=== PATIENT | female | born 1965 | race Caucasian/White ===

== ENCOUNTER → 2016-09-19 | Outpatient (CLI) | payer BC ==
[2016-09-19 11:30] LABS: INFLUENZA A PCR Neg for Influ A (NEG); INFLUENZA B PCR Neg for Influ B (NEG)
== END | disposition home or self-care (01) ==
LOC: C.LAB1850 08:45
PROVIDERS: ATTEND Internal Medicine Infectious Disease
DX: J06.9 Acute upper respiratory infection, unspecified (principal)

== ENCOUNTER → 2016-10-15 | Outpatient (CLI) | payer BC ==
--- NOTE | 2016-10-15 12:41 | MAMMOGRAPHY REPORT ---
BILATERAL DIGITAL SCREENING MAMMOGRAM TOMOSYNTHESIS WITH CAD: 10/15/2016 CLINICAL HISTORY: Routine screening. Patient has no complaints. TECHNIQUE: Breast tomosynthesis in addition to standard 2D mammography was performed. Current study was also evaluated with a Computer Aided Detection (CAD) system. COMPARISON: Comparison is made to exams dated: 10/12/2015 mammogram, 06/02/2013 stereotactic biopsy, 05/12/2013 mammogram, 12/18/2011 mammogram - [facility], 04/01/2007, and 08/16/2003 m ammogram - [facility]. BREAST COMPOSITION: The tissue of both breasts is extremely dense, which lowers the sensitivity of mammography. FINDINGS: No suspicious masses, calcifications, or areas of architectural distortion are noted in e ither breast. There has been no significant interval change compared to prior exams. Small cluster of calcifications in the left upper outer quadrant anteriorly is stable compared to prior exams. Ot her scattered bilateral benign-appearing calcifications are stable. IMPRESSION: ACR BI-RADS CATEGORY 2: BENIGN There is no mammographic evidence of malignancy. A 1 year screening mammogram is recommended. The p atient will receive written notification of the results. Approximately 10% of breast cancers are not detected with mammography. A negative mammographic repor t should not delay biopsy if a clinically suggestive mass is present. Radha Frank M.D. /:10/15/2016 07:58:52 Digital Asset Manager: Tsering Mueller, [facility] letter sent: Normal 1/2 BI-RADS Code: ACR BI-RADS Category 2: Benign
== END | disposition home or self-care (01) ==
LOC: C.MAMM 07:33
PROVIDERS: ATTEND Obstetrics & Gynecology
DX: Z12.31 Encounter for screening mammogram for malignant neoplasm of breast (principal)

== ENCOUNTER → 2017-10-17 | Outpatient (CLI) | payer BC ==
--- NOTE | 2017-10-18 14:59 | MAMMOGRAPHY REPORT ---
BILATERAL DIGITAL SCREENING MAMMOGRAM TOMOSYNTHESIS WITH CAD: 10/17/2017 CLINICAL HISTORY: Routine screening. Patient has no complaints. TECHNIQUE: Breast tomosynthesis in addition to standard 2D mammography was performed. Current study was also evaluated with a Computer Aided Detection (CAD) system. COMPARISON: Comparison is made to exams dated: 10/15/2016 mammogram, 10/12/2015 mammogram, 06/02/2013 s tereotactic biopsy, 05/26/2013 mammogram, 05/12/2013 mammogram, and 12/18/2011 mammogram - [facility]. BREAST COMPOSITION: The tissue of both breasts is extremely dense, which lowers the sensitivity of m ammography. FINDINGS: There is an asymmetry seen within the right lateral breast middle depth on the cc view, wh ich may represent normal fibroglandular tissue although spot compression tomosynthesis views and poss ible breast ultrasound are recommended for further evaluation. At the time of the diagnostic workup, recommend repeat right MLO view to include more posterior tissue. The remainder of both breasts are stable compared to prior exams, without suspicious masses, calcific ations, or areas of architectural distortion noted. Scattered bilateral benign-appearing calcificati ons are again noted. IMPRESSION: ACR BI-RADS CATEGORY 0: INCOMPLETE EVALUATION: NEED ADDITIONAL IMAGING EVALUATION Right breast asymmetry, for which additional imaging evaluation is recommended. At the time of the d iagnostic workup, a repeat right MLO view is recommended as described above. The patient will be juno led to schedule an appointment. Approximately 10% of breast cancers are not detected with mammography. A negative mammographic report should not delay biopsy if a clinically suggestive mass is present. Radha Frank M.D. ah/:10/17/2017 16:33:28 Microcomputer Technician: Yuli CAUSEY,R, M, [facility] letter sent: Addl Imaging 0 BI-RADS Code: ACR BI-RADS Category 0: Incomplete Evaluation: Need Additional Imaging Evaluation
== END | disposition home or self-care (01) ==
LOC: C.MAMM 07:31
PROVIDERS: ATTEND Obstetrics & Gynecology
DX: Z12.31 Encounter for screening mammogram for malignant neoplasm of breast (principal); N64.89 Other specified disorders of breast

== ENCOUNTER → 2017-10-30 | Outpatient (CLI) | payer BC ==
--- NOTE | 2017-10-30 15:57 | MAMMOGRAPHY REPORT ---
UNILATERAL RIGHT DIGITAL DIAGNOSTIC MAMMOGRAM TOMOSYNTHESIS AND TARGETED RIGHT ULTRASOUND: 10/30/2017 CLINICAL HISTORY: Callback from screening mammogram for right breast asymmetry. TECHNIQUE: Breast tomosynthesis in addition to standard 2D mammography was performed. Spot compress ion right CC and MLO and repeat right MLO 2-D and tomosynthesis images were obtained. COMPARISON: Comparison is made to exams dated: 10/17/2017 mammogram, 10/15/2016 mammogram, 10/12/2015 m ammogram, 06/02/2013 stereotactic biopsy, 05/26/2013 mammogram, and 05/12/2013 mammogram - [facility]. BREAST COMPOSITION: The tissue of the right breast is extremely dense, which lowers the sensitivity of mammography. FINDINGS: The previously described asymmetry seen within the right lateral breast on the cc view flores s not clearly persist on the additional spot compression views and may represent normal overlapping f ibroglandular tissue. Targeted ultrasound was performed of the right lateral breast in the region of the mammographic asymmetry. In the right breast at 8:00 periareolar region, there is a gently lobul ated circumscribed hypoechoic solid mass which measures 1.6 x 0.5 x 1.8 cm. An echogenic focus is se en within the mass which corresponds with a coarse calcification seen mammographically. This may rep resent a fibroadenoma, however, ultrasound-guided core needle biopsy is recommended for further evalu ation given that the mass is newly visualized and appears solid on ultrasound. IMPRESSION: ACR BI-RADS CATEGORY 4: SUSPICIOUS, TARGETED ULTRASOUND ACR BI-RADS CATEGORY 4: SUSPICIO US Circumscribed hypoechoic 1.8 cm mass in the right 8:00 breast on ultrasound. This may correspond wit h the mammographic asymmetry, or alternatively the mammographic asymmetry may represent normal overla pping fibroglandular tissue and the mass is incidentally identified on ultrasound. The mass likely r epresents a fibroadenoma although is indeterminate and ultrasound-guided core needle biopsy is recomm ended for further evaluation. A phone call was made to the physician's office to confirm faxed results were received. The patient has been verbally notified of the results. She tentatively scheduled the biopsy before leaving the [facility]. Approximately 10% of breast cancers are not detected with mammography. A negative mammographic report should not delay biopsy if a clinically suggestive mass is present. Radha Frank M.D. ah/:10/30/2017 09:41:04 Cuff Setter: Tsering CAUSEY(R)(M), [facility] letter sent: Abnormal 4/5 BI-RADS Code: ACR BI-RADS Category 4: Suspicious Ultrasound BI-RADS: ACR BI-RADS Category 4: Suspici ous
== END | disposition home or self-care (01) ==
LOC: C.MAMM 08:28
PROVIDERS: ATTEND Obstetrics & Gynecology
DX: N64.9 Disorder of breast, unspecified (principal); N63.10 Unspecified lump in the right breast, unspecified quadrant

== ENCOUNTER → 2017-11-06 | Outpatient (CLI) | payer BC ==
--- NOTE | 2017-11-06 08:24 | Discharge Instructions ---
Discharge Instructions Procedure Procedure Date: Nov 06, 2017. Reason for visit: Right Mass. Discharge Discharge Date: Nov 06, 2017. Discharge Diagnosis: status post breast biopsy Instructions Activity Recommendations: Additional Limitations (see below) Return to School/Work: no limitations Recommended Home Diet: No Limitations Provider Instructions: ACTIVITY RECOMMENDATIONS: * No lifting, pushing, pulling or exercising the affected side for three days. RETURN TO SCHOOL/WORK: * You may return to work/school after the procedure, but do not perform any strenuous activities for 24 to 48 hours. MEDICATIONS: * Tylenol (two 325 mg) every four to six hours if needed for mild pain (if not allergic to Tylenol). DIET: * Resume previous diet. SPECIAL CARE INSTRUCTIONS: * Keep biopsy site dry for 24 hours. May shower after 24 hours, but do not soak (bathe) incision. * May remove Tegaderm (plastic patch) tomorrow AFTER showering. * Leave the steri-strips on for one week. Allow the steri-strips to fall off by themselves. If not off after one week, you may remove them. You may place a Bandaid crosswise over the strips, if desired. * Apply ice 10 minutes on and 10 minutes off as needed. * Wear a bra at bedtime to sleep more comfortably for 2-3 days. * Your referring physician should have the results after approximately 5 to 7 business days. * Call for unusual bleeding, fever, drainage, etc or if you have any questions call during normal business hours or after hours call Dr Frank, . FOLLOW UP VISIT: Follow-up with Referring Physician as scheduled. Allergies Coded Allergies: No Known Allergies (Unverified Allergy, Mild, 02/04/06) Irma Leon Recommendations: Call your doctor if: * Temperature above 101 degrees * Pain not relieved by pain medicine ordered * There is increased drainage or redness from any incision * You have any unanswered questions or concerns. Your Doctors Instructions noted above were prepared by provider Radha Frank. Patient Signature Section: Patient Instructions Signature Page Jerrica Carter Patient (or Guardian) Signature/Date: I have read and understand the instructions given to me by my caregivers. Caregiver/RN/Doctor Signature/Date: The above-named patient and/or guardian has received patient instructions on this date. + Original Patient Signature Page (only) stays with chart. Please make copy for patient.
--- NOTE | 2017-11-07 08:00 | MAMMOGRAPHY REPORT ---
ULTRASOUND GUIDED BIOPSY RIGHT BREAST: 11/06/2017 CLINICAL HISTORY: Right 8:00 breast mass. PATIENT CONSENT: The procedure, risks and benefits were discussed with the patient and informed writt en consent was obtained. A timeout was performed immediately prior to the procedure. PROCEDURE DESCRIPTION: With ultrasound guidance, aseptic technique, and lidocaine as the local anesth etic (1% lidocaine to anesthetize the skin and 1% lidocaine with epinephrine to anesthetize the deepe r tissues), the mass of concern in the right 8:00 breast was sampled 3 times with a 14-gauge Achieve biopsy needle. Immediately thereafter, with ultrasound guidance, aseptic technique, and lidocaine as the local anesthetic, a metallic localizer clip was placed centrally in the mass. Direct pressure w as applied to the site immediately post procedure and hemostasis was achieved. Postprocedure unilate ral mammograms were performed to co clip placement. The patient tolerated the procedure without comp lication. She was given wound care instructions. The specimens were sent to pathology for analysis. COMPARISON: Comparison is made to exams dated: 10/30/2017 ultrasound, 10/30/2017 mammogram, 10/17/2017 mammogram, 10/15/2016 mammogram, 10/12/2015 mammogram, and 05/12/2013 mammogram - [facility]. IMPRESSION: ULTRASOUND GUIDED BIOPSY Ultrasound-guided core needle biopsy of the right 8:00 breast mass, with clip placement. The patient will receive pathology results from her referring provider. If pathology results are benign, the pa tient can return to routine annual mammography. Radha Frank M.D. ah/:11/06/2017 08:35:58 Attending Technologist: Renetta CAUSEY(Sally)(M), [facility] Analog Circuit Designer: Radha Frank MD, [facility]
--- NOTE | 2017-11-07 08:05 | MAMMOGRAPHY REPORT ---
UNILATERAL RIGHT DIGITAL DIAGNOSTIC MAMMOGRAM TOMOSYNTHESIS: 11/06/2017 CLINICAL HISTORY: Status post right breast biopsy. TECHNIQUE: Breast tomosynthesis in addition to standard 2D mammography was performed. Postprocedura l right CC and ML tomosynthesis images were obtained. COMPARISON: Comparison is made to exams dated: 10/30/2017 ultrasound, 10/30/2017 mammogram, 10/17/2017 mammogram, 10/15/2016 mammogram, 10/12/2015 mammogram, and 05/12/2013 mammogram - [facility]. BREAST COMPOSITION: The tissue of the right breast is extremely dense, which lowers the sensitivity of mammography. FINDINGS: A new ribbon-shaped biopsy marker clip is seen at the site of the biopsied mass in the righ t 8:00 breast. No significant postbiopsy hematoma is seen. IMPRESSION: POST PROCEDURE IMAGING FOR MARKER PLACEMENT New biopsy marker clip status post ultrasound-guided biopsy of the right 8:00 breast mass. Pathology results are pending. Approximately 10% of breast cancers are not detected with mammography. A negative mammographic report should not delay biopsy if a clinically suggestive mass is present. Radha Frank M.D. ah/:11/06/2017 08:35:16 Fingernail Sculpturer: Renetta CAUSEY(Sally)(M), [facility] BI-RADS Code: Post Procedure Imaging For Marker Placement
== END | disposition home or self-care (01) ==
LOC: C.MAMM 07:55
PROVIDERS: ATTEND Obstetrics & Gynecology
DX: R92.8 Other abnormal and inconclusive findings on diagnostic imaging of breast (principal); N63.10 Unspecified lump in the right breast, unspecified quadrant; D24.1 Benign neoplasm of right breast